=== PATIENT | female | born 1965 | race Caucasian/White ===

== ENCOUNTER → 2016-08-17 | Outpatient (CLI) | payer BC, OTHER ==
[~2016-08-17] MED LIST: ACET-1311 PO; IBUP-103 PO; MTR600X PO; MULT-506 PO; NORE5TAB5 PO; OXYC-57 PO; VNTHFA/IN INH
== END | disposition home or self-care (01) ==
LOC: C.PATHSPEC 13:07
PROVIDERS: ATTEND Obstetrics & Gynecology
DX: N93.9 Abnormal uterine and vaginal bleeding, unspecified (principal)

== ENCOUNTER 2016-12-10 07:55 | Observation (INO) | payer BC, OTHER ==
[2016-11-15 12:13] VITALS: BMI 32.0
--- NOTE | 2016-11-15 13:00 | PAT Medication Instructions ---
Service Date November 15, 2016. Current Home Medication List Albuterol Hfa (Ventolin Hfa), 2-4 PUFFS INH Q6H PRN for PRN Multivitamin (Multivitamin), 1 TAB PO QPM Norethindrone (Aygestin), 5 MG PO QPM Medication Instructions For Your Scheduled Surgery Norethindrone (Aygestin), 5 MG PO QPM (patient will check with surgeon for instructions) - Take the following medications the morning of surgery with a sip of water: Albuterol Hfa (Ventolin Hfa), 2-4 PUFFS INH Q6H PRN for PRN (bring with you to hospital on day of surgery) - Take the following medications as scheduled the night before surgery: Multivitamin (Multivitamin), 1 TAB PO QPM Albuterol Hfa (Ventolin Hfa), 2-4 PUFFS INH Q6H PRN for PRN If you have any questions please call us at [phone] or [phone] ( [place]) or [phone]
[2016-11-15 13:49] LABS: BASO % 0.2 %; BASO ABS # 0.02 K/uL (0-0.2); COMPLETE YES; EOS % 1.3 %; HEMATOCRIT 42.9 % (37-47); IG% 0.2 %; LYMPH ABS # 3.13 K/uL (1.2-3.4); MEAN CELL VOLUME 92.9 fL (80-100); MEAN CORPUSCULAR HEMOGLOBIN 30.7 pg (25-34); MEAN CORPUSCULAR HGB CONC 33.1 g/dl (32-36); MEAN PLATELET VOLUME 9.9 fL (7.4-10.4); MONO % 4.3 %; PLATELET COUNT 281 K/uL (130-400); RED BLOOD COUNT 4.62 M/uL (4.2-5.4); WHITE BLOOD COUNT 12.03 K/uL (4.8-10.8)
[2016-11-15 14:10] LABS: BUN/CREATININE RATIO 19.4 (10-20); CALCIUM 9.5 mg/dl (8.5-10.1); CREATININE 0.77 mg/dl (0.60-1.20)
[~2016-12-10] VITALS: Ht 157.5 cm; Wt 79.8 kg
[~2016-12-10 07:55] MED LIST changes: -ACET-1311 PO; +CEFAZOLIN 2000 MG/60 ML D5W 50 ML IV SCH; -IBUP-103 PO; +LACTATED RINGER'S 1000ML 1,000 ML IV SCH; -MTR600X PO; -OXYC-57 PO
[2016-12-10 08:35] VITALS: BP 144/74; PULSE 77; TEMP 37.1; O2SAT 96; Ht 157.5 cm; Wt 79.8 kg
[2016-12-10] MEDS ORDERED: IBUP-103 PO (08:52)
[2016-12-10] MEDS ORDERED: ACET-1311 PO (08:52)
[2016-12-10] MEDS ORDERED: HYDROmorphone INJ 2 MG/ML SYR/VIAL ONE (09:01)
[2016-12-10] MEDS ORDERED: FENTANYL CITRATE INJ 50 MCG/1 ML 2 ML VIAL ONE ×2 (09:01→14:10)
[2016-12-10] MEDS ORDERED: MIDAZOLAM HCL 1 MG/ML 2ML VIAL ONE (09:01)
--- NOTE | 2016-12-10 10:13 | History & Physical Bridge Note ---
H&P Re-Evaluation Bridge Note: I have examined the patient, reviewed the History & Physical and in the interval since the performance of the History & Physical I have noted the following changes of clinical significance: No changes noted
[2016-12-10] MEDS ORDERED: METHYLENE BLUE 0.5% 10 ML VIAL ONE (10:24)
[2016-12-10] MEDS ORDERED: BUPIVACAINE 0.5 % 5 MG/1 ML MPF 30ML VIAL ONE (10:24)
[2016-12-10] MEDS ORDERED: ONDANSETRON INJ 2 MG/ML 2 ML VIAL IV PRN ×2 (10:30→14:30)
[2016-12-10] MEDS ORDERED: ATROPINE SULFATE 0.1 MG/ML 5ML SYR IV PRN (10:30)
[2016-12-10] MEDS ORDERED: NALOXONE HCL 0.4 MG/1 ML VIAL/CARP IV PRN (10:30)
[2016-12-10] MEDS ORDERED: FLUMAZENIL 0.1 MG/1 ML 10 ML VIAL IV PRN (10:30)
[2016-12-10] MEDS ORDERED: EpHEDrine SULFATE INJ 50 MG/ML AMP IV PRN (10:30)
[2016-12-10] MEDS ORDERED: PROMETHAZINE HCL INJ 12.5 MG in SODIUM CHLORIDE 0.9% 50ML 50 ML IV PRN ×2 (10:30→14:30)
[2016-12-10] MEDS ORDERED: ONDANSETRON INJ 2 MG/ML 2 ML VIAL ONE (13:00)
[2016-12-10] MEDS ORDERED: LIDOCAINE HCL 2% 2 ML VIAL (20MG/ML) ONE (13:00)
[2016-12-10] MEDS ORDERED: PROPOFOL IV EMULSION 10 MG/ML 20 ML VIAL IV ONE (13:00)
[2016-12-10] MEDS ORDERED: METOCLOPRAMIDE HCL INJ 5 MG/ML 2 ML VIAL ONE (13:00)
[2016-12-10] MEDS ORDERED: GLYCOPYRROLATE INJ 0.2 MG/ML VIAL ONE (13:00)
[2016-12-10] MEDS ORDERED: DEXAMETHASONE SOD INJ 4 MG/ML VIAL ONE (13:00)
[2016-12-10] MEDS ORDERED: CISATRACURIUM BESYLATE IV SOLN 2 MG/ML 10 ML VIAL ONE (13:00)
[2016-12-10] MEDS ORDERED: NEOSTIGMINE METHYLSULFATE 5 MG/5 ML SYR ONE (13:00)
[2016-12-10] MEDS ORDERED: TISSEEL FIBRIN SEALANT 4ML TOP ONE (14:08)
[2016-12-10] MEDS ORDERED: LACTATED RINGER'S 1000ML 1,000 ML IV SCH (14:20)
--- NOTE | 2016-12-10 14:23 | [facility] Post Operative Brief Note ---
Immediate Operative Summary Operative Date December 10, 2016. Pre-Operative Diagnosis Abnormal uterine bleeding Leiomyoma of uterus uterine weight >250 grams Post-Operative Diagnosis Same as preop Procedure(s) Performed Robotic-assisted Total Laparoscopic Hysterectomy with Excite procedure, bilateral salpingectomy, cystoscopy Surgeon Dr. Yates Credit Associate Surgeon(s) . Estimated Blood Loss 40 cc Findings Massively enlarged uterus Specimens A: surgically-resected uterus, cervix, and bilateral fallopian tubes Drains Romero Anesthesia General Complication(s) None Disposition Recovery Room / PACU
[2016-12-10] MEDS ORDERED: MTR600X PO (14:24)
--- NOTE | 2016-12-10 14:24 | Discharge Instructions ---
Discharge Instructions Date of Service December 10, 2016. Admission Reason for Admission: Leiomyoma of Uterus, Abnormal [place] Bleeding Discharge Discharge Diagnosis / Problem: uterine leiomyoma Discharge Goals Goal(s): Routine recovery after surgery Activity Recommendations Activity Limitations: per Instructions/Follow-up section . Instructions / Follow-Up Instructions / Follow-Up POST OPERATIVE: BOWEL FUNCTION/MEDICATIONS: 1. Constipation pain and discomfort are the most common complaints 5-7 days after surgery. Points 2-6 address the things that can help. 2. Chewing gum can help stimulate the gut and help improve digestion and motility. 3. Milk of Magnesia 1-2 times per day until return of bowel function. 4. Colace is a stool softener that helps. Taking this 2-3 times per day until bowel function returns to normal is highly recommended. 5. Dulcolax is a laxative that may be used if several days have passed without a bowel movement. Alternatively Miralax may be used daily instead. 6. Drink plenty of fluids as this will also reduce constipation. 7. Narcotic pain medications will be prescribed by your physician. They are safe to use and we encourage you to use them. If you are not allergic, ibuprofen will also be prescribed. Many patients will be able to transition off of the narcotic medications to ibuprofen by postoperative day 3. ACTIVITY RECOMMENDATIONS: 1. Get plenty of rest and listen to your body. If you are tired, take a nap. 2. You may shower, but do not take a tub bath until you see your doctor at the 2 week post operative visit. 3. Absolutely NO intercourse and nothing in the vagina until you are examined by your doctor at the 6 week visit. At that visit it will be determined when such activities can be resumed. This can range from 6-12 weeks after your surgery depending on healing time. 4. The main physical activity in the first week should be walking. By the second week you can slowly increase activity. There are no limits on walking up and down stairs. 5. Do not lift more than 5-10 lbs for 4 weeks. Remember the "one-handed rule", i.e. if you can lift something with only one hand it's likely okay. 6. Minimize auto body worker like vacuuming and exercising for 4 weeks. "Overdoing it" can lead to incisions not healing, pain and vaginal bleeding , so again, listen to your body. 7. Driving can be resumed when you feel able. Do not drive within 24 hours of taking a narcotic medication. EXPECTATIONS: 1. Vaginal spotting, bleeding and discharge are common after surgery. There may even be an odor to the discharge which is often related to sutures used in the vagina. If you experience heavy vaginal bleeding, call the office number day or night [phone]. 2. Bladder discomfort is common after surgery from the catheter. This usually resolves in 1-2 weeks. 3. By the end of the 3rd or 4th week you should be feeling much better. It may take up to 6 weeks for your energy levels to return to normal. 4. Narcotic medications have side effects such as: dizziness, headache, nausea and/or vomiting. If you suspect your pain medication is causing problems, call our office and we may be able to prescribe an alternate medication. 5. The skin incisions are often covered with a liquid bandage. This will gradually peel off over time. CALL THE OFFICE IF YOU HAVE ANY OF THE FOLLOWIN. Temperature of 101 degrees or higher. 2. Severe abdominal or pelvic pain not relieved by pain medication. 3. Persistent nausea or vomiting. 4. Increased pain with urination or difficulty urinating. 5. Bright red bleeding that soaks more than 1 pad per hour. CONTACT PHONE NUMBERS: Main Office: [phone] Surgical Nurse: [phone] extension [phone] Avoid all tobacco products. If you need help to stop smoking, call [place]'s FREE QUITLINE at . This is a free call. Current Hospital Diet Patient's current hospital diet: Discharge Diet Recommended Diet: Regular Diet Procedures Procedures Performed: Robotic-assisted Total Laparoscopic Hysterectomy with Excite procedure, bilateral salpingectomy, cystoscopy Pending Studies Studies pending at discharge: no Medical Emergencies . Who to Call and When: Medical Emergencies: If at any time you feel your situation is an emergency, please call 911 immediately. . Non-Emergent Contact Non-Emergency issues call your: Celery Wrapper . . "Provider Documentation" section prepared by Jean-Paul Yates. . VTE Core Measure Inpt VTE Proph given/why not?: Glenn Ferrara, SCD's
[2016-12-10] MEDS ORDERED: OXYC-57 PO (14:25)
[2016-12-10] MEDS ORDERED: ACETAMINOPHEN 325 MG TAB PO PRN (14:30)
[2016-12-10] MEDS ORDERED: MEPERIDINE HCL 50 MG/ML CARP IV PRN ×2 (14:30)
[2016-12-10] MEDS ORDERED: PROMETHAZINE HCL INJ 25 MG in SODIUM CHLORIDE 0.9% 50ML 50 ML IV PRN (14:30)
[2016-12-10] MEDS ORDERED: MAGNESIUM HYDROXIDE SUSP 30 ML UDC PO PRN (14:30)
[2016-12-10] MEDS ORDERED: SIMETHICONE 80 MG CHEW PO PRN (14:30)
[2016-12-10] MEDS ORDERED: KETOROLAC TROMETHAMINE 30 MG/ML VIAL IV. PRN (14:30)
[2016-12-10] MEDS ORDERED: ZOLPIDEM TARTRATE 5 MG TAB PO PRN (14:30)
[2016-12-10] MEDS ORDERED: IBUPROFEN 600 MG TAB PO PRN (14:30)
[2016-12-10] MEDS ORDERED: BISACODYL 10 MG SUPP PR PRN (14:30)
[2016-12-10] MEDS ORDERED: OXYCODONE/ACETAMINOPHEN 5-325 TAB PO PRN ×2 (14:30)
[2016-12-10] MEDS ORDERED: HYDROmorphone HCL 0.5MG/ML 50 ML CASSETTE ONE (14:41)
[2016-12-10] MEDS: HYDROmorphone INJ 1 MG/ML SYR IV PRN ×4 (14:45→15:35)
[2016-12-10] MEDS ORDERED: IV FLUIDS COMPLETED PRN (15:00)
[2016-12-10] MEDS ORDERED: PROMETHAZINE HCL INJ 12.5 MG in SODIUM CHLORIDE 0.9% 50ML 50 ML IV STA (15:35)
--- NOTE | 2016-12-10 15:37 | Anesthesiology Progress Note ---
Anesthesia Post Op Note Date & Time December 10, 2016 at 15:38 Vital Signs Pain Intensity: 5.0 Vital Signs Past 12 Hours Date Time Temp Pulse Resp B/P Pulse Ox O2 Delivery O2 Flow Rate FiO2 12/10/16 15:23 36.7 12/10/16 15:21 110/67 12/10/16 15:18 58 15 12/10/16 15:18 58 15 99 12/10/16 15:17 124/76 12/10/16 15:13 60 13 99 12/10/16 15:13 59 13 12/10/16 15:11 124/78 12/10/16 15:08 56 18 99 12/10/16 15:08 59 18 12/10/16 15:07 120/71 12/10/16 15:04 71 12/10/16 15:04 70 98 12/10/16 15:01 117/60 12/10/16 14:59 78 16 12/10/16 14:59 83 16 98 12/10/16 14:58 75 19 12/10/16 14:58 74 19 98 12/10/16 14:56 112/70 12/10/16 14:53 87 17 12/10/16 14:53 89 17 99 12/10/16 14:51 113/65 12/10/16 14:48 65 23 12/10/16 14:48 64 23 98 12/10/16 14:46 118/67 12/10/16 14:43 60 17 12/10/16 14:43 60 17 98 12/10/16 14:41 120/67 12/10/16 14:38 78 15 98 12/10/16 14:38 78 15 12/10/16 14:36 124/69 12/10/16 14:33 82 18 99 12/10/16 14:33 80 18 12/10/16 14:31 119/70 12/10/16 14:29 127/74 12/10/16 14:28 82 17 12/10/16 14:28 37.5 79 20 127/74 99 Mask 10 12/10/16 14:28 82 17 99 12/10/16 08:35 37.1 77 20 144/74 96 Room Air Notes Mental Status: alert / awake / arousable, participated in evaluation Pt Amnestic to Procedure: Yes Nausea / Vomiting: adequately controlled Pain: adequately controlled Airway Patency, RR, SpO2: stable & adequate BP & HR: stable & adequate Hydration State: stable & adequate Anesthetic Complications: no major complications apparent
[2016-12-10] MEDS ORDERED: NURSING VERBAL MED ORDER ONE (15:45)
[2016-12-10] MEDS ORDERED: PROMETHAZINE HCL INJ 12.5 MG in SODIUM CHLORIDE 0.9% 50ML 50 ML IV ONE (15:45)
[2016-12-10 16:30] VITALS: BP 112/63; PULSE 74; TEMP 36.7; O2SAT 96
[2016-12-10 17:00] VITALS: BP 117/74; PULSE 56; O2SAT 99
[2016-12-10 17:30] VITALS: BP 138/75; PULSE 62; O2SAT 96
[2016-12-10 18:30] VITALS: BP 127/80; PULSE 85; O2SAT 99
[2016-12-10 20:53] LABS: HEMATOCRIT 38.2 % (37-47)
[2016-12-10] MEDS ORDERED: DOCUSATE SODIUM 100 MG CAP PO SCH (21:00)
[2016-12-10 21:09] VITALS: BP 127/80; PULSE 85; TEMP 36.7; O2SAT 99
--- NOTE | 2016-12-10 23:16 | OPERATIVE REPORT ---
DATE OF OPERATION: 12/10/2016 PREOPERATIVE DIAGNOSIS: Uterine leiomyoma, uterine weight greater than 250 grams and abnormal uterine bleeding. POSTOPERATIVE DIAGNOSIS: Same. PROCEDURE: Robotically assisted total laparoscopic hysterectomy with Excite excision of uterus, bilateral salpingectomy, cystoscopy. SURGEON: Dr. Yates. INFORMATION SERVICES ASSISTANT: None. ESTIMATED BLOOD LOSS: 40 mL FINDINGS: Massively enlarged uterus. SPECIMENS: Surgically resected uterus, cervix and bilateral fallopian tubes. DRAINS: Romero catheter. ANESTHETIC: General. COMPLICATIONS: None. DISPOSITION: Recovery room. Janet was given a general anesthetic, prepped and draped in dorsal lithotomy position in [facility]. Bladder drained with a Romero catheter. IV Ancef being given preoperatively. Vcare sewn into the cervix into the uterus appropriately. Uterus was enlarged approximately 14 weeks size. Supraumbilical incision was made with scalpel. Using open Herber technique, we dissected down through subcutaneous fat to the fascia in the midline. Rectus muscle split and peritoneal cavity entered without difficulty. Blunt-tipped Herber trocar was then placed. Balloon inflated. CO2 gas to insufflate the abdomen. FINDINGS: Upper abdomen normal, no sign of visceral organ injury. Deep Trendelenburg position was then obtained. Findings: Massively enlarged uterus appears benign, but irregularly shaped. Adnexa appeared within normal limits. Two robotic ports on the right and one on the left were then placed and an 11 mm left upper quadrant accessory port. Arm #1 was the johnny needle driver/guide. Arm #2 was the bipolar [place]. Arm #3 was intermittently the ProGrasp and the tenaculum. The procedure was begun by removing the fallopian tubes first on the left, then right side. We then identified the ureter on the left side. Using the VCare to move the uterus, I was able to identify the ureter on the left side. Blood supply distal to the ovary was then coagulated with the bipolar [place] then cut with monopolar gideon. Same process with the round ligament. Uterine vessels were then skeletonized and bladder flap sharply dissected away. Vessels were prominent on the left side. These were then coagulated and cut in the usual fashion staying away from the left ureter. Same process on the right side with conservation of the right ovary. I was able to develop the bladder flap at this stage. On the right side, there was a lateral fibroid. I was able to get underneath this and coagulate the vessels. These were again well away from the right side of the ureter and then cut the vessels. We then were able to make an anterior colpotomy with the monopolar gideon using manipulation from the Vcare, use of the third arm including this tenaculum, was able to remove the cervix from the vagina and complete the colpotomy. Vcare was then detached from the device. The device was then detached from the uterus and sponge and a glove was placed in the vagina for pneumoperitoneum. Uterus was then placed in the left upper quadrant and then methylene blue was given by anesthesia intravenously. We then performed the cuff closure. Instrument exchanged, arm #1 became the johnny needle driver/guide, arm 2 became the Danal d/b/a [employer] grasper. The cuff was then closed with a 12 inch 2-0, 90-day V-Loc suture from left to right, back right to left ensuring full thickness of at least 1 cm bites of vaginal mucosa. Suture was then cut so there was no tail. Needle removed through the accessory port. After generous irrigation and suction, hemostasis was excellent. We then performed cystoscopy. Cystoscopy showed a normal bladder, no sign of injury, no sutures and good strong jets of bluish green dye from both left and right ureter openings. Cystoscope was removed and a new Romero catheter was placed. Sponge had been removed from the vagina. Gloves changed and we then directed our attentions to the Excite procedure. The umbilical port was removed and then a 15 mm port was placed under direct visualization and then a large surgical bag was then placed through this and the specimen was then placed by using a 5 mm port through one of the robotic ports and grasping the specimen placing entirely into the bag. The bag was then brought to the umbilical port and then the Chandra small retractor was then placed into the bag. Using the Excite technique, we removed the specimens surgically resected. There was no spill from the bag or perforation of the bag. There was approximately 30-40 minutes to remove the entire specimen. Once it was removed, the bag and the Chandra were also removed. At this stage after looking around, hemostasis was excellent. After generous irrigation and suction, we then applied Tisseel to the area. After this, we then allowed the gas to escape. Ports had been all removed. Robot had long been undocked at this stage. Incisions were all injected with 0.5% Marcaine. Fascia closed with 0 Vicryl in the umbilical and left upper quadrant ports, deep subcutaneous closures as well with 0 Vicryl in these two ports and 4-0 subcuticular Monocryl closures. Dermabond used. Sponge and instrument counts correct. The patient was sent to the recovery room in stable condition. I attest to the content of the Intraoperative Record and any orders documented therein. Any exceptio ns are noted below.
--- NOTE | 2016-12-11 00:54 | Medical Student: [facility] ---
Operative Report Operative Date December 10, 2016. Pre-Operative Diagnosis uterine leiomyomas, abnormal uterine bleeding (menorrhagia) Post-Operative Diagnosis uterine leiomyomas, enlarged uterus, abnormal uterine bleeding (menorrhagia Procedure(s) Performed Robotic-assisted Total Laparoscopic Hysterectomy, salpingectomy x2, cystoscopy Surgeon Dr. Orville Yates Patient Partner Surgeon(s) none Estimated Blood Loss 40 mL Findings markedly enlarged uterus (14 weeks in size), obvious leiomyomas present Fluids (cc crystalloids) Lactated Ringer's Specimens uterus, cervix, and fallopian tubes x2 sent to pathology Anesthesia general endotracheal anesthesia Complication(s) None Disposition Recovery Room / PACU
--- NOTE | 2016-12-14 10:40 | DISCHARGE SUMMARY ---
HISTORY OF PRESENT ILLNESS: Janet had a total laparoscopic hysterectomy for an enlarged uterus on 12/10/2016. Several hours later, she met discharge criteria. Specifically, at that time she was ambulating well, tolerating an oral diet, pain was well controlled by oral medications. She had no vaginal bleeding and she had no extremity pain. PHYSICAL EXAMINATION: Her vital signs were stable. She was afebrile. IMPRESSION AND PLAN: Hemoglobin at 8:00 p.m. was 12.8. She met discharge criteria and was discharged on the evening of 12/10/2016 with appropriate discharge instructions and pain medication.
== END 2016-12-10 21:30 | disposition home or self-care (01) ==
LOC: C.ACU 07:55 → C.MS4N 14:22
PROVIDERS: ADMIT Obstetrics & Gynecology; ATTEND Obstetrics & Gynecology
DX: D25.9 Leiomyoma of uterus, unspecified (principal); N93.9 Abnormal uterine and vaginal bleeding, unspecified; J45.909 Unspecified asthma, uncomplicated; Z88.5 Allergy status to narcotic agent; Z68.32 Body mass index [BMI] 32.0-32.9, adult; E66.9 Obesity, unspecified; Z87.898 Personal history of other specified conditions; Z87.891 Personal history of nicotine dependence; Z82.49 Family history of ischemic heart disease and other diseases of the circulatory system; Z82.62 Family history of osteoporosis; Z80.3 Family history of malignant neoplasm of breast; Z84.2 Family history of other diseases of the genitourinary system; Z80.0 Family history of malignant neoplasm of digestive organs
CPT/HCPCS: 58573; S2900

== ENCOUNTER → 2016-12-24 | Outpatient (CLI) | payer BC ==
[~2016-12-24] MED LIST changes: +ACET-1311 PO; -CEFAZOLIN 2000 MG/60 ML D5W 50 ML IV SCH; +IBUP-103 PO; -LACTATED RINGER'S 1000ML 1,000 ML IV SCH; +MTR600X PO; +OXYC-57 PO
[2016-12-24 15:05] LABS: URINE APPEARANCE CLEAR (CLEAR); URINE BILIRUBIN NEG (NEG); URINE COLOR YELLOW; URINE NITRITE NEG (NEG); URINE PH 5.5 (4.5-7.5); URINE SPECIFIC GRAVITY 1.017 (1.000-1.030); UROBILINOGEN NEG (NEG)
[2016-12-24 15:17] LABS: MANUAL MICROSCOPIC REQUIRED? NO; REVIEW REQ? NO
== END | disposition home or self-care (01) ==
LOC: C.LAB1850 12:05
PROVIDERS: ATTEND Obstetrics & Gynecology
DX: R39.9 Unspecified symptoms and signs involving the genitourinary system (principal)

== ENCOUNTER → 2017-02-02 | Outpatient (CLI) | payer BC ==
--- NOTE | 2017-02-03 12:10 | MAMMOGRAPHY REPORT ---
BILATERAL DIGITAL SCREENING MAMMOGRAM TOMOSYNTHESIS WITH CAD: 02/02/2017 CLINICAL HISTORY: Routine screening examination. TECHNIQUE: Breast tomosynthesis in addition to standard 2D mammography was performed. Current study was also evaluated with a Computer Aided Detection (CAD) system. COMPARISON: Comparison is made to exams dated: 05/22/2009 ultrasound, 05/22/2009 mammogram, 12/07/2005 mammogram, and 11/16/2000 mammogram - [facility]. BREAST COMPOSITION: The tissue of both breasts is heterogeneously dense, which may obscure small mas ses. FINDINGS: The parenchymal pattern is unchanged. No new suspicious spiculated or irregular mass, arch itectural distortion or cluster of suspicious microcalcifications is seen in either breast. IMPRESSION: ACR BI-RADS CATEGORY 2: BENIGN There is no mammographic evidence of malignancy. A 1 year screening mammogram is recommended. The pa tient will receive written notification of the results. Approximately 10% of breast cancers are not detected with mammography. A negative mammographic report should not delay biopsy if a clinically suggestive mass is present. Ginger Jean Baptiste M.D. ay/:02/02/2017 16:44:43 Geology Technician: Alexa LUU(R)(M)(BD), [facility] letter sent: Normal 1/2 BI-RADS Code: ACR BI-RADS Category 2: Benign
== END | disposition home or self-care (01) ==
LOC: C.MAMM 08:18
PROVIDERS: ATTEND Obstetrics & Gynecology
DX: Z12.31 Encounter for screening mammogram for malignant neoplasm of breast (principal)